=== PATIENT | female | born 1935 | race Caucasian/White ===

== ENCOUNTER 2025-06-13 02:06 | Emergency (ER) | payer OTHER ==
[2025-06-13 02:49] LABS: Absolute Lymphocytes (CBC) 1.4 K/uL (0.7-4.9); Hematocrit 39.1 % (36.0-45.0); Hemoglobin 13.4 g/dL (12.0-15.0); MCH 30.4 pg (27.0-35.0); MCHC 34.3 g/dL (32.0-36.0); MCV 88.6 fL (80-100); MPV 7.3 fL (7.6-11.3); Nucleated RBC Absolute Count 0.0 (0-0); Nucleated Red Blood Cells % 0.0 % (0-0); RBC Red Blood Cell Count 4.41 M/uL (3.86-4.86); White Blood Count 7.00 thou/uL (4.3-10.9)
[2025-06-13 03:00] LABS: PT Prothrombin Time 12.2 SECONDS (10-13.0); Protime INR 1.08
[2025-06-13] MEDS ORDERED: NA CHLORIDE 0.9% 500 ML ONE (03:02)
[2025-06-13] MEDS ORDERED: KETOROLAC 30 MG/ML INJ ONE (03:02)
[2025-06-13] MEDS ORDERED: METOCLOPRAMIDE 10 MG/2mL INJ ONE (03:02)
[2025-06-13 03:14] LABS: ALT/SGPT 17 U/L (13-56); AST/SGOT < 10 U/L (15-37); Albumin 3.4 g/dL (3.4-5.0); Albumin/Globulin Ratio 0.9 (1.1-1.8); Alkaline Phosphatase 59 U/L (45-117); Anion Gap 10.7 mEq/L (5.0-15.0); BUN Blood Urea Nitrogen 16 mg/dL (7-18); Bilirubin Indirect, Calculated 0.2 mg/dL (0.2-0.8); Globulin 3.7 g/dL (2.3-3.5); Glucose Level 112 mg/dL (74-106); Magnesium 2.2 mg/dL (1.6-2.4); NT PRO-BNP 175 pg/mL (<450); Potassium 3.7 mEq/L (3.5-5.1); Troponin High Sensitivity 5.3 pg/mL (<58.9)
[2025-06-13] MEDS ORDERED: HYDROCODONE/APAP 5/325 MG TAB ONE (05:09)
[2025-06-13] MEDS ORDERED: DIAZEPAM 2 MG TABLET ONE (05:18)
--- NOTE | 2025-06-13 05:30 | ER ---
Nurse's Notes [facility] Name: Ashley Soria Age: 89 yrs Sex: Female : 1935 Arrival Date: 06/13/2025 Time: 02:06 Bed 6 Private MD: Diagnosis: Acute onset headache, acute posterior headache, acute blood pressure elevation, balance disorder Presentation: 06/13 02:22 Chief complaint: Patient states: DIZZINESS OFF AND ON SINCE YESTERDAY. PAIN ON THE BACK ha1 OF HEAD WITH MOVEMENT. ELEVATED BP AT HOME BP 145/90. 02:22 Coronavirus screen: Client denies travel out of the [place] in the last 14 days. Ebola ha1 Screen: No symptoms or risks identified at this time. Initial Sepsis Screen: Does the patient meet any 2 criteria? No. Patient's initial sepsis screen is negative. Does the patient have a suspected source of infection? No. Patient's initial sepsis screen is negative. Risk Assessment: Do you want to hurt yourself or someone else? Patient reports no desire to harm self or others. Onset of symptoms was June 13, 2025. 02:22 Method Of Arrival: Wheelchair ha1 02:36 Acuity: RUSH 3 kd3 Triage Assessment: 02:42 General: Appears comfortable, Behavior is calm, cooperative. Pain: Complains of pain in ha1 BACK OF HEAD Pain currently is .5 out of 10 on a pain scale. Quality of pain is described as aching, Pain began 1 day ago. Aggravated by increased activity. Neuro: Level of Consciousness is awake, alert, obeys commands, Oriented to person, place, time, situation, Reports dizziness, since YESTERDAY. Cardiovascular: Capillary refill < 3 seconds Patient's skin is warm and dry. Respiratory: Airway is patent Respiratory effort is even, unlabored, Respiratory pattern is regular, symmetrical. 05:54 Headache History: Denies prior headaches. Pain: Also complains of no other associated kd3 symptoms. Historical: - Allergies: 02:42 No Known Allergies; ha1 - PMHx: 02:42 Glaucoma; Hypertensive disorder; ha1 - Immunization history:: Adult Immunizations up to date. - Infectious Disease History:: Denies. - Social history:: Smoking status: Patient/guardian denies using tobacco, the patient reports quitting approximately 40 years ago. - Family history:: not pertinent. Screenin:35 [facility] ED Fall Risk Assessment (Adult) History of falling in the last 3 months, kd3 including since admission No falls in past 3 months (0 pts) Confusion or Disorientation No (0 pts) Intoxicated or Sedated No (0 pts) Impaired Gait No (0 pts) Mobility Assist Device Used No (0 pt) Altered Elimination No (0 pt) Score/Fall Risk Level 0 - 2 = Low Risk Maintained a safe environment. Abuse screen: Denies threats or abuse. Denies injuries from another. Nutritional screening: No deficits noted. Tuberculosis screening: No symptoms or risk factors identified. Assessment: 02:33 General: Appears in no apparent distress. Behavior is calm, cooperative. Pain: kd3 Complains of pain in base of the skull. Neuro: Level of Consciousness is awake, alert, obeys commands, Oriented to person, place, time, situation. Cardiovascular: Capillary refill < 3 seconds Patient's skin is warm and dry. Respiratory: Airway is patent Trachea midline Respiratory effort is even, unlabored, Respiratory pattern is regular, symmetrical. 04:42 Reassessment: Patient appears in no apparent distress at this time. No changes from lg3 previously documented assessment. Patient and/or family updated on plan of care and expected duration. Pain level reassessed. Patient is alert, oriented x 3, equal unlabored respirations, skin warm/dry/pink. Patient states symptoms have improved. Vital Signs: 02:35 BP 165 / 92; Pulse 63; Resp 18; Temp 97.7(O); Pulse Ox 100% on R/A; kd3 03:43 BP 155 / 78; Pulse 64; Resp 15 S; Pulse Ox 100% on R/A; lg3 04:42 BP 150 / 81; Pulse 71; Resp 16 S; Pulse Ox 100% on R/A; lg3 05:55 BP 142 / 77; Pulse 72; Resp 16; Pulse Ox 97% on R/A; kd3 Webster Coma Score: 05:33 Eye Response: spontaneous(4). Motor Response: obeys commands(6). Verbal Response: sp4 oriented(5). Total: 15. NIH Stroke Scale Scores: 05:33 NIHSS Score: 0 sp4 ED Course: 02:07 Patient arrived in ED. im 02:08 Lamine Mercedes MD is Attending Physician. sp4 02:22 Ellie Fragoso, RN is Primary Nurse. kd3 02:34 No provider procedures requiring assistance completed. Initial lab(s) drawn, by ED kd3 staff, sent to lab. EKG done, by ED staff, reviewed by Lamine Mercedes MD. Inserted saline lock: 22 gauge in right antecubital area, using aseptic technique. Blood collected. Flushed with 10 mL NS. 02:34 Basic Metabolic Panel Sent. kd3 02:34 CBC with Diff Sent. kd3 02:34 LFT's Sent. kd3 02:34 Magnesium Sent. kd3 02:35 NT PRO-BNP Sent. kd3 02:35 PT-INR Sent. kd3 02:35 Troponin HS Sent. kd3 02:36 Triage completed. kd3 03:07 XRAY Chest (1 view) In Process Unspecified. EDMS 03:19 CT Head Brain wo Cont In Process Unspecified. EDMS 05:27 Ross Meier MD is Referral Physician. sp4 05:54 IV discontinued, intact, bleeding controlled, No redness/swelling at site. Pressure kd3 dressing applied. 05:54 Arm band placed on right wrist. kd3 05:54 Patient has correct armband on for positive identification. Provided Education on: kd3 headache . Administered Medications: 03:04 Drug: Ketorolac IVP 15 mg IVP once Route: IVP; Site: right antecubital; lg3 04:43 Follow up: Response: No adverse reaction lg3 03:04 Drug: metoCLOPramide IVP 10 mg IVP once; over 1 to 2 minutes Route: IVP; Site: right lg3 antecubital; 04:43 Follow up: Response: No adverse reaction lg3 03:04 Drug: NS 0.9% IV 500 ml 500 ml IV at 1 bolus once; to be given as a bolus over 30 lg3 minutes Volume: 500 ml; Route: IV; Rate: 1 bolus; Site: right antecubital; 04:42 Follow up: Response: No adverse reaction; IV Status: Completed infusion; IV Intake: lg3 500ml 05:10 Drug: HYDROcodone-acetaminophen PO 5 mg-325 mg 1 tabs PO once Route: PO; ss12 05:20 Drug: Diazepam PO 2 mg PO once Route: PO; ss12 Medication: 05:54 VIS not applicable for this client. kd3 Intake: 04:42 IV: 500ml; Total: 500ml. lg3 Outcome: 05:29 Discharge ordered by . sp4 05:54 Discharged to home ambulatory, with family, kd3 05:54 Condition: stable 05:54 Discharge instructions given to patient, family, Instructed on discharge instructions, follow up and referral plans. Demonstrated understanding of instructions, follow-up care, 05:55 Patient left the ED. kd3 NIH Stroke Scale - NIH Stroke Score Date: 06/13/2025 Time: 05:33 Total Score = 0 10. Dysarthria (speech clarity - read or repeat words) - 0(Normal) 11. Extinction and Inattention (visual/tactile/auditory/spatial/personal) - 0(No abnormality) 1a. Level of Consciousness (LOC) - 0(Alert) 1b. Level of Consciousness (LOC) (Month \T\ Age) - 0(Both) 1c. LOC Commands (Open \T\ Closes Eyes/Die Cutter) - 0(Both) 2. Best Gaze (Lateral Gaze Paresis) - 0(Normal) 3. Visual Field Loss - 0(No visual loss) 4. Facial Palsy - 0(Normal) 5a. Left Arm: Motor (10-second hold) - 0(No drift) 5b. Right Arm: Motor (10-second hold) - 0(No drift) 6a. Left Leg: Motor (5-second hold - always test supine) - 0(No drift) 6b. Right Leg: Motor (5-second hold - always test supine) - 0(No drift) 7. Limb Ataxia (finger/nose \T\ heel/gibbs - test with eyes open) - 0(Absent) 8. Sensory Loss (pinprick arms/legs/face) - 0(Normal) 9. Best Language: Aphasia (description/naming/reading) - 0(No aphasia) Initials: sp4 Signatures: Dispatcher [employer] EDMS Corazon Talley RN RN lg3 Ellie Fragoso, RN ZANA kd3 Kia Caceres, RN RN ha1 Lamine Mercedes MD MD sp4 Genny Ramirez Shamaila RN RN ss12 Corrections: (The following items were deleted from the chart) 02:45 02:22 Chief complaint: Patient states: DIZZINESS OFF AND ON SINCE YESTERDAY. ha1 PAIN ON THE BACK OF HEAD WITH MOVEMENT. ELEVATED BP AT HOME BP 145/90 ha1
--- NOTE | 2025-06-13 05:30 | EDPHYS ---
Physician Documentation [facility] Name: Ashley Soria Age: 89 yrs Sex: Female : 1935 Arrival Date: 06/13/2025 Time: 02:06 Bed 6 Private MD: ED Physician Lamine Mercedes HPI: 06/13 02:08 This 89 yrs old Other Race Female presents to ER via Unassigned with complaints of sp4 Dizziness, High Blood Pressure, Headache, Abdominal Pain. 05:32 Patient presents with acute onset posterior headache associated with elevated blood sp4 pressure. Reports of poor balance and dizziness. Historical: - Allergies: 02:42 No Known Allergies; ha1 - PMHx: 02:42 Glaucoma; Hypertensive disorder; ha1 - Immunization history:: Adult Immunizations up to date. - Infectious Disease History:: Denies. - Social history:: Smoking status: Patient/guardian denies using tobacco, the patient reports quitting approximately 40 years ago. - Family history:: not pertinent. ROS: 05:33 Constitutional: Negative for fever, chills, and weight loss, positive for headache, sp4 positive for elevated blood pressure, positive for dizziness, positive for balance problem 05:33 All other systems are negative, Exam: 05:31 Constitutional: This is a well developed, well nourished patient who is awake, alert, sp4 and in no acute distress. Head/Face: Normocephalic, atraumatic. Eyes: Pupils equal round and reactive to light, extra-ocular motions intact. Lids and lashes normal. Conjunctiva and sclera are not injected. Cornea within normal limits. Periorbital areas with no swelling, redness, or edema. ENT: Nares patent. No nasal discharge, no septal abnormalities noted. Tympanic membranes are normal and external auditory canals are clear. Oropharynx with no redness, swelling, or masses, exudates, or evidence of obstruction, uvula midline. Mucous membranes moist. Neck: Trachea midline, no thyromegaly or masses palpated, and no cervical lymphadenopathy. Supple, full range of motion without nuchal rigidity, or vertebral point tenderness. Chest/axilla: Normal chest wall appearance and motion. Nontender with no deformity. No lesions are appreciated. Cardiovascular: Regular rate and rhythm with a normal S1 and S2. No gallops, murmurs, or rubs. No pulse deficits. Respiratory: Lungs have equal breath sounds bilaterally, clear to auscultation and percussion. No rales, rhonchi or wheezes noted. No increased work of breathing, no retractions or nasal flaring. Abdomen/GI: Soft, with normal bowel sounds. No distension or tympany. No guarding or rebound. No evidence of tenderness throughout. Back: No spinal tenderness. No costovertebral tenderness. Skin: Warm, dry with normal turgor. Normal color with no rashes, no lesions, and no evidence of cellulitis. MS/ Extremity: Pulses equal, no cyanosis. Neurovascular intact. Full, normal range of motion. Neuro: Awake and alert, GCS 15, oriented to person, place, time, and situation. Cranial nerves II-XII grossly intact. Motor strength 5/5 in all extremities. Sensory grossly intact. Psych: Awake, alert, with orientation to person, place and time. Behavior, mood, and affect are within normal limits 05:31 ECG was reviewed by the Attending Physician. EKG at 0 230 normal sinus rhythm rate 65, normal EKG Vital Signs: 02:35 BP 165 / 92; Pulse 63; Resp 18; Temp 97.7(O); Pulse Ox 100% on R/A; kd3 03:43 BP 155 / 78; Pulse 64; Resp 15 S; Pulse Ox 100% on R/A; lg3 04:42 BP 150 / 81; Pulse 71; Resp 16 S; Pulse Ox 100% on R/A; lg3 05:55 BP 142 / 77; Pulse 72; Resp 16; Pulse Ox 97% on R/A; kd3 NIH Stroke Scale Scores: 05:33 NIHSS Score: 0 sp4 Tony Coma Score: 05:33 Eye Response: spontaneous(4). Motor Response: obeys commands(6). Verbal Response: sp4 oriented(5). Total: 15. MDM: 02:36 Medical Screening Exam initiated sp4 05:33 Differential diagnosis: CVA, generalized weakness, head injury, hyperventilation, sp4 hypovolemia, idiopathic dizziness, near-syncope, TIA, vertigo. Data reviewed: vital signs, nurses notes, old medical records, lab test result(s), EKG, radiologic studies, CT scan, plain films. Consideration of Admission/Observation Escalation of care including admission/observation considered. ED course: Patient has normal exam, blood pressure under fairly good control. Headache improved after medications. Patient appears to be anxious. No sign of acute CVA, no sign of significant balance disorder. At this time will recommend follow-up with neurology for further examination and outpatient workup. 05:35 ED course: COMPARISON: 12/19/2022 FINDINGS: 1 view(s) of the chest. Tubes and lines: sp4 Leads overlie the chest. Cardiomediastinal silhouette: Atherosclerotic calcification of the thoracic aorta. Heart is not enlarged. Lungs: No consolidation, pneumothorax, or pleural effusion. Bones: No acute osseous abnormality. Degenerative change of the spine and shoulders. Upper abdomen: No abnormality identified. IMPRESSION: 1. No acute pulmonary process identified.. 05:48 ED course: EXAM DESCRIPTION: CT of the head without contrast CLINICAL HISTORY: acute sp4 headache COMPARISON: None available TECHNIQUE: Axial CT of the head obtained from the skull apex to the skull base without contrast. This exam was performed according to our departmental dose-optimization program, which includes automated exposure control, adjustment of the mA and/or kV according to patient size and/or use of iterative reconstruction technique. FINDINGS: No acute intracranial hemorrhage identified. No mass, mass effect, shift of the midline, abnormal extra-axial fluid collection or CT evidence of acute ischemic change identified. The ventricular system and sulcal spaces are mildly enlarged compatible with mild cerebral atrophy. Scattered areas of hypodensity throughout the supratentorial white matter are nonspecific and may be related to chronic small vessel ischemic change. Mild inferior cerebellar tonsillar ectopia. The visualized paranasal sinuses and the mastoids are clear. No skull fracture identified. Visualized orbits and globes are unremarkable. Atherosclerotic calcification of the intracranial internal carotid arteries. IMPRESSION: 1. No acute intracranial abnormality by CT criteria.. 06/13 02:08 Order name: Basic Metabolic Panel; Complete Time: 04:48 sp4 06/13 02:08 Order name: CBC with Diff; Complete Time: 03:01 sp4 06/13 02:08 Order name: LFT's; Complete Time: 04:48 sp4 06/13 02:08 Order name: Magnesium; Complete Time: 04:48 sp4 06/13 02:08 Order name: NT PRO-BNP; Complete Time: 04:48 sp4 06/13 02:08 Order name: PT-INR; Complete Time: 03:01 4 06/13 02:08 Order name: Troponin HS; Complete Time: 04:48 4 06/13 02:08 Order name: XRAY Chest (1 view) 4 06/13 03:01 Order name: CT Head Brain wo Cont 4 06/13 02:08 Order name: Cardiac monitoring; Complete Time: 02:34 4 06/13 02:08 Order name: EKG - Nurse/Tech; Complete Time: :34 4 06/13 02:08 Order name: IV Saline Lock; Complete Time: :34 sp4 06/13 02:08 Order name: Labs collected and sent; Complete Time: : 4 06/13 02:08 Order name: O2 Per Protocol; Complete Time: : 4 06/13 02:08 Order name: O2 Sat Monitoring; Complete Time: EC:30 Rate is 65 beats/min. Rhythm is regular, Sinus Rhythm. QRS [place] is Normal. MI interval sp4 is normal. QRS interval is normal. QT interval is normal. No Q waves. T waves are Normal. No ST changes noted. Clinical impression: No evidence of ischemia. Interpreted by me. Reviewed by me. Administered Medications: 03:04 Drug: Ketorolac IVP 15 mg IVP once Route: IVP; Site: right antecubital; lg3 04:43 Follow up: Response: No adverse reaction lg3 03:04 Drug: metoCLOPramide IVP 10 mg IVP once; over 1 to 2 minutes Route: IVP; Site: right lg3 antecubital; 04:43 Follow up: Response: No adverse reaction lg3 03:04 Drug: NS 0.9% IV 500 ml 500 ml IV at 1 bolus once; to be given as a bolus over 30 lg3 minutes Volume: 500 ml; Route: IV; Rate: 1 bolus; Site: right antecubital; 04:42 Follow up: Response: No adverse reaction; IV Status: Completed infusion; IV Intake: lg3 500ml 05:10 Drug: HYDROcodone-acetaminophen PO 5 mg-325 mg 1 tabs PO once Route: PO; ss12 05:20 Drug: Diazepam PO 2 mg PO once Route: PO; ss12 Disposition: 06/14 00:27 Chart complete. sp4 Disposition Summary: 06/13/25 05:29 Discharge Ordered Notes: Location: Home sp4 Problem: new sp4 Symptoms: have improved sp4 Condition: Stable sp4 Diagnosis - Acute onset headache, acute posterior headache, acute blood pressure elevation, sp4 balance disorder Followup: sp4 - With: Ross Meier MD - When: 7 - 10 days - Reason: Recheck today's complaints Discharge Instructions: - Discharge Summary Sheet sp4 - General Headache Without Cause, Rlis-ss-[id number] sp4 Forms: - Patient Portal Instructions sp4 Prescriptions: - Fioricet 50-300-40 mg Oral capsule - take 1 capsule ORAL route every 8 hours as needed for pain; 30 capsule; sp4 Refills: 0, Product Selection Permitted - Valium 2 mg Oral tablet - take 1 tablet ORAL route once daily As needed PRN anxiety; 12 tablet; Refills: sp4 0, Product Selection Permitted NIH Stroke Scale - NIH Stroke Score Date: 06/13/2025 Time: 05:33 Total Score = 0 10. Dysarthria (speech clarity - read or repeat words) - 0(Normal) 11. Extinction and Inattention (visual/tactile/auditory/spatial/personal) - 0(No abnormality) 1a. Level of Consciousness (LOC) - 0(Alert) 1b. Level of Consciousness (LOC) (Month \T\ Age) - 0(Both) 1c. LOC Commands (Open \T\ Closes Eyes/Riding Double) - 0(Both) 2. Best Gaze (Lateral Gaze Paresis) - 0(Normal) 3. Visual Field Loss - 0(No visual loss) 4. Facial Palsy - 0(Normal) 5a. Left Arm: Motor (10-second hold) - 0(No drift) 5b. Right Arm: Motor (10-second hold) - 0(No drift) 6a. Left Leg: Motor (5-second hold - always test supine) - 0(No drift) 6b. Right Leg: Motor (5-second hold - always test supine) - 0(No drift) 7. Limb Ataxia (finger/nose \T\ heel/gibbs - test with eyes open) - 0(Absent) 8. Sensory Loss (pinprick arms/legs/face) - 0(Normal) 9. Best Language: Aphasia (description/naming/reading) - 0(No aphasia) Initials: sp4 Signatures: Dispatcher [employer] EDCorazon Kennedy RN RN lg3 Kia Caceres, RN RN ha1 Lamine Mercedes MD MD sp4 Ceasar Mcdonough, RN RN ss12
--- NOTE | 2025-06-13 05:42 | RAD REPORT ---
EXAM DESCRIPTION: Chest Single View CLINICAL HISTORY: CHEST PAIN COMPARISON: 12/19/2022 FINDINGS: 1 view(s) of the chest. Tubes and lines: Leads overlie the chest. Cardiomediastinal silhouette: Atherosclerotic calcification of the thoracic aorta. Heart is not enlar ged. Lungs: No consolidation, pneumothorax, or pleural effusion. Bones: No acute osseous abnormality. Degenerative change of the spine and shoulders. Upper abdomen: No abnormality identified. IMPRESSION: 1. No acute pulmonary process identified. Electronically signed by: Rodney Roberson DO 06/13/2025 05:32 AM CDT 4ZDM Due to temporary technical issues with the PACS/[employer] reporting system, reports are being yesica d by the in-house radiologist without review as a courtesy to ensure prompt reporting the interpreting radiologist is fully responsible for the content of the report. Transcribed Date/Time: 06/13/2025 5:42 AM
--- NOTE | 2025-06-13 05:43 | RAD REPORT ---
EXAM DESCRIPTION: CT of the head without contrast CLINICAL HISTORY: acute headache COMPARISON: None available TECHNIQUE: Axial CT of the head obtained from the skull apex to the skull base without contrast. This exam was performed according to our departmental dose-optimization program, which includes automated exposure control, adjustment of the mA and/or kV according to patient size and/or use of it erative reconstruction technique. FINDINGS: No acute intracranial hemorrhage identified. No mass, mass effect, shift of the midline, abnormal ext ra-axial fluid collection or CT evidence of acute ischemic change identified. The ventricular system and sulcal spaces are mildly enlarged compatible with mild cerebral atrophy. Scattered areas of hypodensity throughout the supratentorial white matter are nonspecific and may be related to chronic small vessel ischemic change. Mild inferior cerebellar tonsillar ectopia. The visualized paranasal sinuses and the mastoids are clear. No skull fracture identified. Visualiz ed orbits and globes are unremarkable. Atherosclerotic calcification of the intracranial internal carotid arteries. IMPRESSION: 1. No acute intracranial abnormality by CT criteria. Electronically signed by: Rodney Roberson DO 06/13/2025 05:38 AM CDT 4ZDM Due to temporary technical issues with the PACS/[employer] reporting system, reports are being yesica d by the in-house radiologist without review as a courtesy to ensure prompt reporting the interpreting radiologist is fully responsible for the content of the report. Transcribed Date/Time: 06/13/2025 5:43 AM
[2025-06-13 05:59] VITALS: TEMP 97.7
[2025-06-13 06:04] VITALS: BP 142/77; O2SAT 97
== END 2025-06-13 05:55 | disposition home or self-care (01) ==
LOC: ER 02:06
DX: R51.9 Headache, unspecified (principal); R42 Dizziness and giddiness; R10.9 Unspecified abdominal pain; I10 Essential (primary) hypertension
CPT/HCPCS: 96361; 93005; 85025; 80048; 36415; 83735; 85610; 80076; 84484; 83880; 70450; 71045; 96375; 96374; 99284; J2765; J7040; J1885